=== PATIENT | male | born 1975 | race Caucasian/White ===

== ENCOUNTER 2019-03-05 12:28 | Inpatient (IN) | payer MEDICAID ==
[~2019-03-05] VITALS: Ht 175.3 cm; Wt 73.5 kg
[2019-03-05 12:32] VITALS: Ht 175.3 cm; Wt 73.5 kg
--- NOTE | 2019-03-05 13:17 | NUR ---
PATIENT STATES THAT THEY HAVE SHARP TESTICULAR PAIN. PATIENT STATES THAT THE PAIN HAS BEEN GOING FOR 3 DAYS. PATIENT DENIES N/V/D. PATIENT STATES THAT THEY HAVE PAIN UPON URINATION.
[2019-03-05 13:52] LABS: BASOPHIL % 0.4 % (0-2); PLATELET COUNT 377 x10^3mcL (130-400); RED CELL DISTRIBUTION WIDTH 13.7 % (11.5-14.5)
[2019-03-05 13:52] LABS: UA SPECIFIC GRAVITY 1.015 (1.005-1.035); microscopic required? YES; urine erythrocyte 2+ (NEGATIVE)
[2019-03-05 14:06] LABS: CALCIUM 9.1 mg/dL (8.5-10.1); CARBON DIOXIDE 25.2 mmol/L (21-32); CHLORIDE SERUM 94 mmol/L (98-107); CREATININE SERUM 0.9 mg/dL (0.7-1.3); GFR1 > 60 mL/min; GLUCOSE SERUM 115 mg/dL (74-106); POTASSIUM SERUM 3.7 mmol/L (3.5-5.1); SODIUM SERUM 134 mmol/L (136-145)
[2019-03-05 14:15] LABS: ALBUMIN 3.6 g/dL (3.4-5.0); ALKALINE PHOSPHATASE 96 U/L (46-116); ALT/SGPT 31 U/L (16-63); AST/SGOT 18 U/L (15-37); BILIRUBIN TOTAL 0.7 mg/dL (0.20-1.00); TOTAL PROTEIN, SERUM 8.1 g/dL (6.4-8.2)
[2019-03-05 14:21] LABS: T3 TOTAL 0.7 ng/mL
[2019-03-05 14:29] LABS: C REACTIVE PROTEIN 17.3 mg/dL (<=0.9)
[2019-03-05 14:40] LABS: CK-MB 0.9 ng/mL (0-3.6)
[2019-03-05 14:57] LABS: FREE T4 0.9 ng/dL (0.76-1.46); FREE THYROXINE INDEX 1.8 ug/dL (1.4-4.5); T4(THYROXINE) 4.9 ug/dL (4.7-13.3)
[2019-03-05 15:05] LABS: ERYTHROCYTE SED RATE 48 mm/hr (0-15)
--- NOTE | 2019-03-05 15:37 | NUR ---
REPORT GIVEN TO VÍCTOR OLMOS RN. AWAITING MD ORDERS AT THIS TIME
[2019-03-05 15:45] LABS: AMPHETAMINE QUAL UR POSITIVE (See below)
[2019-03-05 16:16] LABS: CHOLESTEROL/HDL RATIO 3.1
[2019-03-05 17:02] VITALS: BP 141/85
--- NOTE | 2019-03-05 17:12 | NUR ---
RECEIVED FROM ER, TRANSPORTED VIA WHEELCHAIR, ACCOMPANIED BY HIS . AWAKE AND ALERT, ORIENTED TO NAME, PLACE, TIME AND SITUATION. SPEECH CLEAR AND APPROPRIATE. ADMISSION HISTORY AND ASSESSMENT DONE. SWELLING AND REDNESS TO SCROTUM, MORE TO LEFT SIDE. HAVING PAIN TO SCROTUM, INFORMED NURSE RAMIREZ. ENDORSED TO NURSE RAMIREZ.
--- NOTE | 2019-03-05 18:03 | NUR ---
PT HAS TEMP OF 106.0. PAGED DR. ROQUE WHO WILL PUT IN NEW ORDERS. PT HAS ALREADY RECEIVED TYLENOL FOR T OF 102.6
--- NOTE | 2019-03-05 19:23 | NUR ---
RESTING MORE COMFORTABLY. BREATHING FREELY ON RA. ONGOING COOLING MEASURES. T 100.2 POOR APPETITE WITH DINNER. AT BEDSIDE. NS INFUSING 100 CC HOUR. INDEPENDENT W ADL'S. CALL LIGHT WITHIN REACH.
[2019-03-05 19:25] VITALS: BP 133/80
--- NOTE | 2019-03-05 19:30 | NUR ---
RECEIVED PT ASLEEP BUT EASILY AROUSABLE WITH AT BEDSIDE/LATEST TEMP @ 101.6F.CONTINOUS COOLING MEASURES IN PLACED.AR 6/10 TO SHARP PAIN TO SCROTUM.REDNESS/SWELLING NOTED TO SCROTUM.BP 133/80 MMHG,HR 113.WILL MEDICATE ACCORDINGLY.WILL CONTINUE TO MONITOR.
--- NOTE | 2019-03-05 22:23 | NUR ---
LATEST TEMP CHECKED @ 99.3F.CONTINOUS COOLING MEASURES IN PLACED.MEDICATED WITH NORCO 1 TAB PO FOR SCROTAL PAIN.COMFORT MEASURES RENDERED.WILL CONTINUE TO MONITOR.
--- NOTE | 2019-03-06 04:38 | NUR ---
PT SLEPT WELL ALL NIGHT.MEDICATED WITH NORCO 7.5 MG PO X1 FOR SCROTAL PAIN WITH GOOD RELIEF.CONTINOUS COOLING MEASURES IN PLACED.COLLECTED URINE SAMPLE FOR GONORRHEA ORDERED.ALL NEEDS MET.WILL CONTINUE TO MONITOR.
--- NOTE | 2019-03-06 05:16 | NUR ---
TEMP REPORTED @ 101 F.TYLENOL 650 MG PO ADMINISTERED.CONTINOUS COOLING MEASURES IN PLACED.FLUIDS OFFERED AND ENCOURAGED .WILL CONTINUE TO MONITOR.
[2019-03-06 05:47] VITALS: BP 148/86
--- NOTE | 2019-03-06 06:11 | NUR ---
TEMP RECHECKED @ 99.9F.CONTINOUS COOLING MEASURES IN PLACED.WILL CONTINUE TO MONITOR.
[2019-03-06 06:24] LABS: CALCIUM 8.4 mg/dL (8.5-10.1); CARBON DIOXIDE 23.1 mmol/L (21-32); CHLORIDE SERUM 100 mmol/L (98-107); CREATININE SERUM 0.8 mg/dL (0.7-1.3); GFR1 > 60 mL/min; GLUCOSE SERUM 97 mg/dL (74-106); POTASSIUM SERUM 4.5 mmol/L (3.5-5.1); SODIUM SERUM 135 mmol/L (136-145)
[2019-03-06 07:00] LABS: PLATELET COUNT 308 x10^3mcL (130-400); RED CELL DISTRIBUTION WIDTH 13.6 % (11.5-14.5)
--- NOTE | 2019-03-06 07:30 | NUR ---
PT ENDORSE TO ME THIS MORNING AA/O X4, BREATHING EVEN AND UNLABORED ON RA, NO ACUTE RESP DISTRESS OR SOB NOTED. MEDSURG/ DENIES ANY CP OR PRESSURE. BOWEL SOUNDS ACTIVE IN ALL FOUR QUADS. VOIDS FREELY. URINAL AT BEDSIDE. AMB. SCROTAL SWELLING NOTED/ ELEVATED ON ROLLED UP TOWEL. IV TO THE LAC INTACT AND PATENT/ INFUSING AT 100ML/HR, NO RENDESS OR SWELLING NOTED. CALL LIGHT IN REACH. X2 SIDE RAILS UP/ WILL CONTINUE TO MONITOR.
--- NOTE | 2019-03-06 07:45 | NUR ---
DR. AVILA MADE AWARE OF WBC 24.6 WILL CONTINUE TO MONITOR.
[2019-03-06 08:18] VITALS: BP 112/74
[2019-03-06 08:27] LABS: BAND NEUTROPHIL 10 % (0-10); BASOPHIL 0 % (0-2); METAMYELOCTE 1 % (0-2); MONOCYTE 6 % (0-7); SEGMENTED NEUTROPHILS 75 % (37-75)
[2019-03-06 08:28] LABS: rbc morphology (normal/abnorm) NORMAL (NORMAL)
--- NOTE | 2019-03-06 08:52 | NUR ---
PT C/O OF SCROTAL PAIN 03/01, MEDICATED PER EMAR.
--- NOTE | 2019-03-06 15:04 | NUR ---
CURRENT TEMP 101, MEDICATED PER EMAR, COOLING MEASURES APPLIED. WILL CONTINUE TO MONITOR.
--- NOTE | 2019-03-06 15:07 | NUR ---
ASSISTED PT WITH CHANGING HIS GROWN, C/O SCROTUM DISCOMFORT AND WOULD LIKE DOC TO COME SEE HIM. DR. MARK IGLESIAS. ELEVATED PT SCROTUM ON A ROLLED UP TOWEL. WILL CONTINUE TO MONITOR.
--- NOTE | 2019-03-06 15:16 | NUR ---
Discount pharmacy card and list to low cost medical clinics given to patient by Stephen.
[2019-03-06 15:58] VITALS: BP 116/71
--- NOTE | 2019-03-06 16:20 | NUR ---
ADVICE DR. GARCIAED REGRADING PT BEING NPO AND WANTING TO EAT DINNER, PER ORDERS OK FOR PT TO EAT DINNER. WILL CONTINUE TO MONITOR. PT AT BEDSIDE.
[2019-03-06 18:04] LABS: PLATELET COUNT 323 x10^3mcL (130-400); RED CELL DISTRIBUTION WIDTH 13.3 % (11.5-14.5)
--- NOTE | 2019-03-06 18:13 | NUR ---
LAB CALLED WBC 25.5 DR. MARK IGLESIAS. WILL CONTINUE TO MONITOR PT.
--- NOTE | 2019-03-06 18:44 | NUR ---
NO ACUTE CHANGES AT THIS TIME. NO ACUTE RESP DISTRESS OR SOB NOTED. DENIES ANY SCROTUM DISCOMFORT AT THIS TIME/ REMAINS ELEVATED ON ROLLED TOWEL. IV TO THE LAC INTACT AND PATENT INFUSING AT 100ML/HR. WILL ENDORSE TO INCOMING R.N.
[2019-03-06 18:46] LABS: BAND NEUTROPHIL 6 % (0-10); MONOCYTE 7 % (0-7); SEGMENTED NEUTROPHILS 80 % (37-75)
[2019-03-06 18:48] LABS: PLATELET MORPHOLOGY PLATELETS NORMAL; rbc morphology (normal/abnorm) NORMAL (NORMAL)
--- NOTE | 2019-03-06 19:30 | NUR ---
RECEIVED PT FROM DAY SHIFT RN. PT IS AAOX4 DENIES LLAMAS/DIZZINESS. LUNG SOUNDS CTA ON RA WITH NO SOB NOTED. MED SURG PT, DENIES CHEST PAIN/PRESSURE. ABD SOFT ROUND, ACTIVE BOWEL SOUNDS. DENIES ABD PAIN/N/V. SCROTUM EDEMA NOTED. PT AMBULATES. GENERALIZED WEAKNESS. IV LAC PATENT, INFUSING WELL. NO SIGNS OF ACUTE DISTRESS NOTED. CALL BUTTON WITHIN REACH. SAFETY PRECAUTIIONS IN PLACE. AT BEDSIDE. WILL CONTINUE TO MONITOR.
--- NOTE | 2019-03-06 20:00 | NUR ---
DR HAWKINS MADE AWARE PT WBC OF 25.5. NO NEW ORDERS.
--- NOTE | 2019-03-06 20:28 | NUR ---
PT WITH TEMP OF 100.8 COOLING MEASURES APPLIED. TYLENOL GIVEN PER EMAR. WILL CONTINUE TO MONITOR.
[2019-03-06 21:02] VITALS: BP 122/80
--- NOTE | 2019-03-07 01:00 | NUR ---
PT RESTING. BREATHING EVEN AND UNLABORED WITH NO SIGNS OF DISTRESS. CALL BUTTON WITHIN REACH. SAFETY PRECAUTIONS IN PLACE. WILL CONTINUE TO MONITOR.
--- NOTE | 2019-03-07 05:25 | NUR ---
PT SLEPT MOST OF THE NIGHT WITH NO SIGNS OF DISTRESS. BREATHING EVEN AND UNLABORED ON RA. PT IV PATENT AND INFUSING WELL. PT DENIES ANY PAIN OR DISCOMFORT. PT NON COMPLIANT WITH NURSING CARE, CONTINUES TO KEEP SCROTUM ELEVATED. EDUCATED PT IMPORTANCE OF KEEPING SCROTUM ELEVATED, PT VERBALIZED UNDERSTANDING BUT CONTINUE TO REFUSED. PT USES URINAL AT BEDSIDE. NO SIGNS OF DISTRESS. CALL BUTTON WITHIN REACH. SAFETY PRECAUTIONS IN PLACE. WILL CONTINUE TO MONITOR AND ENDORSE CARE TO DAY KAYLA RAY.
[2019-03-07 05:37] VITALS: BP 123/78
[2019-03-07 06:23] LABS: PLATELET COUNT 344 x10^3mcL (130-400); RED CELL DISTRIBUTION WIDTH 13.4 % (11.5-14.5)
[2019-03-07 06:35] LABS: CALCIUM 8.4 mg/dL (8.5-10.1); CARBON DIOXIDE 24.8 mmol/L (21-32); CHLORIDE SERUM 100 mmol/L (98-107); CREATININE SERUM 0.8 mg/dL (0.7-1.3); GFR1 > 60 mL/min; GLUCOSE SERUM 122 mg/dL (74-106); MAGNESIUM 2.2 mg/dL (1.8-2.4); PHOSPHOROUS 2.1 mg/dL (2.5-4.9); POTASSIUM SERUM 4.2 mmol/L (3.5-5.1); SODIUM SERUM 136 mmol/L (136-145)
--- NOTE | 2019-03-07 06:43 | NUR ---
RECEIVED CRITICAL LAB WBC 25.8 DR KADY IGLESIAS. AWAITING CALL BACK.
--- NOTE | 2019-03-07 07:25 | NUR ---
PT RESTING, DENIES PAIN. NO SIGNS OF DISTRESS. ENDORSED CARE TO DAY SHIFT RN, ALL QUESTIONS ADDRESSED.
[2019-03-07 07:47] LABS: BAND NEUTROPHIL 3 % (0-10); BASOPHIL 0 % (0-2); MONOCYTE 4 % (0-7); SEGMENTED NEUTROPHILS 91 % (37-75)
[2019-03-07 07:50] LABS: PLATELET MORPHOLOGY PLATELETS INCREASED; rbc morphology (normal/abnorm) ABNORMAL (NORMAL)
--- NOTE | 2019-03-07 08:00 | NUR ---
RECEIVED PATIENT SLEEPY BUT ARROUSABLE. PATIENT IS REQUESTING WATER AND FOOD AND PATIENT IS AWARE OF NPO STATUS AND WHY. PATIENT CONTINUED ON IV FLUID SND ON MULTIPLE ANTIBIOTICS. PATIENT HAS NO ADVERSE REACTION NOTED. THE SCOTUM IS SWOLLEN AND PATIENT IS WITH SOME DRAINAGE ON THE UNDERWEAR THAT APPEARS SEROUS IN NATURE. THEAREAS IS WITH REDNESS. PATIENT HAS BEEN ABLE TO URINATE AND USES THE URINAL AT BEDSIDE. VITALS AT THIS TIME AT 99.1, 92, 18, 123/78, 96%. WBC AT 25.8 AND THE PATIENT HAS NOTED POSITIVE FOR UTI AND AMPHETAMINES IN THE URINE. PATIEN THAS BEEN ON ROCEPHIN, VANCO, FLAGYL, VIBORMYCIN, AND ZITHROMAX. PATIENT HAS EPIDIDYMITIS AND NO OTHER HISTORY PER REPORT. WILL CONTINUE TO MONITOR AND FEVER REPORTED OVERNIGHT.
[2019-03-07 09:30] VITALS: BP 121/80
--- NOTE | 2019-03-07 10:54 | NUR ---
HAD GIVEN NORCO FOR PAIN AND NOW TYLENOL WELL DUE TO FEVER NOTED. PATIENT HAS BEEN ON BEDREST AND REQUESTING FOOD AND FLUIDS. AN ORDER HAS BEEN RECIEVED. PATIENT RUNNING VANCO AT THIS TIME AND TROUGH WAS DRAWN AND RESULTS RECIEVED. WILL RELAY TO THE PHARMACY INDICATED. WILL MONITOR FOR EFFECTIVENESS OF THE TYLNEOL AND NORCO INDICATED.
--- NOTE | 2019-03-07 15:43 | NUR ---
CONTINUED ON IV ANTIBIOTICS AND NOTED THE SCOTUM REMAINS WITH SWELLING. PATIETNIS NON COMPLIANT WITH USING A SUPPORT AND WANTS TO WEAR IS UNDERWEAR.
[2019-03-07 16:58] VITALS: BP 98/65
--- NOTE | 2019-03-07 19:03 | NUR ---
PATIENT RESTING QUIETLY AT THIS TME FAMILY BROUGHT IN FOOD AND HE DENIES PAIN AT THIS TIME. WILL CONTINUE TO MONITOR. REMINDED THERE IS A NEED TO HAVE THE OK BY THE DOCTOR FOR OUTSIDE. FOOD.
--- NOTE | 2019-03-07 19:35 | NUR ---
RECIEVED PT RESTING IN BED, NO ACUTE DISTRESS NOTED. PT AOX4, DENIES LLAMAS/DIZZINESS. MEDSURG PT, DENIES CP. PULSES PALPABLE BILAT, DENIES NUMBNESS/TINGLING IN FEET. RESP EVEN AND UNLABORED, ON RA, DENIES SOB. ABD SOFT, ROUND, DENIES ABD PAIN. PT VOIDS FREELY W/ MINIMAL DYSURIA. ON VANCO AND ZOSYN, PT HAS TESTICULAR SWELLING AND ERYTHEMA NOTED TO LEFT TESTICLE, ELEVATED ON FOLDED TOWEL PER ORDER, PT REPORTS PAIN HAS DECREASED SINCE ON ANTIBIOTICS. PT AMBULATORY, DENIES DIZZINESS/LIGHTHEADEDNESS UPON AMBULATION. IV SITE TO THE RFA PATENT, NS @ 100ML/HR. NO REDNESS, SWELLING OR PAIN NOTED. ALL COMFORT AND SAFETY MEASURES PROVIDED FOR, CALL LIGHT WITHIN REACH, BED IN LOWEST POSITION, WILL CONTINUE TO MONITOR.
[2019-03-07 20:59] VITALS: BP 121/84
[2019-03-08 05:14] VITALS: BP 114/68
[2019-03-08 07:48] LABS: CALCIUM 7.7 mg/dL (8.5-10.1); CARBON DIOXIDE 22.7 mmol/L (21-32); CHLORIDE SERUM 101 mmol/L (98-107); CREATININE SERUM 0.8 mg/dL (0.7-1.3); GFR1 > 60 mL/min; GLUCOSE SERUM 99 mg/dL (74-106); MAGNESIUM 2.1 mg/dL (1.8-2.4); PHOSPHOROUS 2.9 mg/dL (2.5-4.9); SODIUM SERUM 135 mmol/L (136-145)
--- NOTE | 2019-03-08 08:00 | NUR ---
RECIEVED PATIENT SLEEPING QUIETLY AT THIS TIME. IV INTACT AND THE PATIENT HAS NO NOTED FEVER AT THIS TIME. THE REDNESS AND SWELLIGN TOHT SCOTUM IS IMPROVED OVER NIGHT ADN PATIENT CAN URINATE WITHOUT PROBLEMS. PATIENT AHS VITALS AT THIS TIME AT 98.9, 91, 18, 114/68, 97% ON ROOM AIR. JUVENTINO ALCALA NOTED LAB OF THE CA AT 7.7, THE NA AT 135, AND THE VANCO AT 10.1. [facility] AND NEXT TROUGH WILL BE LATER. LUNGS ARE CLEAR AND BOWEL SOUNDS ACTIVE AND SKIN IS WARM AND DRY. PATIENT HAS BEEN ON ROCPHIN AND VANCO AND SO FAR NO ADVERSE REACATION [facility] ELBOW SURGERY AND NO OTHER HISTORY AT THIS TIME. THE GONORRHEA AND CLAMIDIA SWABS ARE PENDIGN AND PATIENT HAS NOTE DE COLI IN THE URINE. PATINET HAS BEEN AMBULATPRU AND THE PATIENT HAS IMPROVED THE SWELLING THE SCOTUM AND NO FEVER AT THIS TIME. WILL CONTINUE TO MONITOR.
[2019-03-08 08:17] LABS: BASOPHIL % 0.4 % (0-2); PLATELET COUNT 361 x10^3mcL (130-400); RED CELL DISTRIBUTION WIDTH 13.9 % (11.5-14.5)
[2019-03-08 09:18] VITALS: BP 102/68
--- NOTE | 2019-03-08 11:01 | NUR ---
PER THE FAMILY THE DR STATES HE CAN GO HOME TODAY. NO FEVER NOTED AND PATIENT IS COMFORTABLE AT THIS TIME. AWAITING ORDERS INDICATED.
[2019-03-08] MEDS ORDERED: LAC PO (11:22)
[2019-03-08] MEDS ORDERED: IBU600 M2 PO (11:23)
[2019-03-08] MEDS ORDERED: LEVAQUIN750 MG PO (11:24)
[2019-03-08 11:33] VITALS: BP 102/68
--- NOTE | 2019-03-08 13:25 | NUR ---
DISCHARGE ORDERS RECEIVED. IV REMOVED AND PICTURE TAKEN. PATIENT TO FOLLOW UP WITH PRIMARY DOCTOR AND ADVISED TO COME BACK TO THE ER IF SYMPTOMS PERSIST. PATIENT DICHARGED TO HOME WITH ALL BELONGINGS.
--- NOTE | 2019-03-08 17:00 | NUR ---
RETURNED TO THE HOSPITAL DUE TO UNABE TO FILL THE PRESCIPTION. CALLED THE PHARMACY TO CONFIRM THE REASONING . PATIENT HAS NOT HAD THE PRESCRIPTION CONFIRMED WITH THE MEDICAL SERVICES.SENT MESSAGE TO CHILD DEVELOPMENT ASSOCIATE TEACHER INDICATED.
== END 2019-03-08 12:56 | disposition home or self-care (01) | DRG 720 ==
LOC: ED 12:28 → MU 15:05
PROVIDERS: Specialist; ADMIT Internal Medicine
DX: A41.9 Sepsis, unspecified organism (principal); E87.1 Hypo-osmolality and hyponatremia; N45.3 Epididymo-orchitis; N39.0 Urinary tract infection, site not specified; N43.1 Infected hydrocele; B96.20 Unspecified Escherichia coli [E. coli] as the cause of diseases classified elsewhere; D64.9 Anemia, unspecified; F15.10 Other stimulant abuse, uncomplicated; F17.210 Nicotine dependence, cigarettes, uncomplicated; Z68.26 Body mass index [BMI] 26.0-26.9, adult
CPT/HCPCS: 83880; 84439; 87491; 87591; C9113; G0378; J0456; J0696; J1885; J1956; J2060; J2270; J2405; J2543; J3010; J3370; J3490; J7030; J7040; J7060; Q0092